=== PATIENT | female | born 1985 | race Caucasian/White ===

== ENCOUNTER 2017-11-03 18:37 | Emergency (ER) | payer OTHER ==
--- NOTE | 2017-11-03 21:12 | US ---
First trimester obstetrical ultrasound: Multiple real-time images were obtained transvaginally. Single intrauterine gestational sac is seen. Embryo is identified which has a crown-rump length of 1.1 cm correlating to an age of 7 weeks 1 day. No heart activity is seen which should be visible at this time. Incidental nabothian cysts are seen. Maternal ovaries appear unremarkable. Impression: 1. at approximately 7 weeks 1 day. Embryo shows no heart activity which should be present at this time. Findings are compatible with nonviable . Diagnostic code #5
--- NOTE | 2017-11-03 21:53 | EDM.PDOC ---
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 Her dogman/woman is Dr. Cardona, however, she states that she has not yet met Dr. Cardona, because her previous appointments have had to be moved due to Dr. Cardona having to attend medical emergencies. The patient's current appointment to meet Dr. Cardona is this 11/05/2017. The patient states that she developed some painless spotting this morning, then passed a fairly large clot, without pain, around 18:00 this evening. Since then , she has been having "light flow". She went to the walk-in clinic, but was sent here. No urinary symptoms. The patient's PCP was Bianca Pena; she does not have a replacement PCP. - Related Data Allergies Allergy/AdvReac Type Severity Reaction Status Date / Time Sulfa (Sulfonamide Allergy Nausea Verified 11/03/17 18:52 Antibiotics) Home Meds: Home Meds . 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 One right knee surgery, open.) Social & Family History - Tobacco Use Smoking Status *Q: Never Smoker Second Hand Smoke Exposure: No - Caffeine Use Caffeine Use: Reports: Coffee - Alcohol Use Alcohol Use History: Yes Alcohol Use Frequency: Socially (before ) - Recreational Drug Use Recreational Drug Use: No - Living Situation & Occupation Living situation: Reports: , with Spouse, with Family (2 stepkids) Occupation: Employed ([employer]) ED ROS GENERAL - Review of Systems Review Of Systems: ROS reveals no pertinent complaints other than HPI. ED EXAM - Physical Exam Exam: See Below Exam Limited By: No Limitations General Appearance: Alert, WD/WN, No Apparent Distress Eye Exam: Bilateral Eye: EOMI, Normal Inspection Ears: Normal External Exam, Hearing Grossly Normal Nose: Normal Inspection Throat/Mouth: Normal Inspection, Normal Lips, Normal Voice, No Airway Compromise Head: Atraumatic, Normocephalic Neck: Normal Inspection, Full Range of Motion Respiratory/Chest: No Respiratory Distress, Lungs Clear, Normal Breath Sounds, No Accessory Muscle Use Cardiovascular: Normal Peripheral Pulses, Regular Rate, Rhythm, No Edema, No Gallop, No JVD, No Murmur, No Rub GI/Abdominal Exam: Normal Bowel Sounds, Soft, Non-Tender, No Organomegaly, No Distention, No Abnormal Bruit, No Mass Back Exam: Normal Inspection, Full Range of Motion. No: CVA Tenderness (L), CVA Tenderness (R) Extremities: Normal Inspection, Normal Range of Motion, No Pedal Edema, Normal Capillary Refill Neurological: Alert, Oriented, Normal Cognition, No Motor/Sensory Deficits Psychiatric: Normal Affect Skin Exam: Warm, Dry, Intact, Normal Color, No Rash Course - Vital Signs Last Recorded V/S: Last Vital Signs Temp 37.3 C 11/03/17 18:52 Pulse 78 11/03/17 18:52 Resp 18 11/03/17 18:52 BP 133/79 11/03/17 18:52 Pulse Ox 100 11/03/17 18:52 - Orders/Labs/Meds Labs: Laboratory Tests 11/03/17 11/03/17 Range/Units 20:15 20:15 WBC 7.53 (3.98-10.04) K/mm3 RBC 4.20 (3.98-5.22) M/mm3 Hgb 12.6 (11.2-15.7) gm/L Hct 38.0 (34.1-44.9) % MCV 90.5 (79.4-94.8) fl MCH 30.0 (25.6-32.2) pg MCHC 33.2 (32.2-35.5) g/dl RDW Std Deviation 40.7 (36.4-46.3) fL Plt Count 275 (182-369) K/mm3 MPV 10.4 (9.4-12.3) fl Neutrophils % (Manual) 60 (40-60) % Band Neutrophils % 0 (0-10) % Lymphocytes % (Manual) 31 (20-40) % Atypical Lymphs % 0 % Monocytes % (Manual) 5 (2-10) % Eosinophils % (Manual) 4 (0.7-5.8) % Basophils % (Manual) 0 L (0.1-1.2) Platelet Estimate Adequate Plt Morphology Comment Normal RBC Morph Comment Normal Sodium 139 (136-145) mEq/L Potassium 3.5 (3.5-5.1) mEq/L Chloride 103 (98-107) mEq/L Carbon Dioxide 30 (21-32) mEq/L Anion Gap 9.5 (5-15) BUN 13 (7-18) mg/dL Creatinine 0.6 (0.55-1.02) mg/dL Est Cr Clr Drug Dosing 121.85 mL/min Estimated GFR (MDRD) > 60 (>60) mL/min BUN/Creatinine Ratio 21.7 H (14-18) Glucose 96 (74-106) mg/dL Calcium 9.3 (8.5-10.1) mg/dL Total Bilirubin 0.2 (0.2-1.0) mg/dL AST 23 (15-37) U/L ALT 36 (14-59) U/L Alkaline Phosphatase 41 L (46-116) U/L Total Protein 7.5 (6.4-8.2) g/dl Albumin 3.9 (3.4-5.0) g/dl Globulin 3.6 gm/dL Albumin/Globulin Ratio 1.1 (1-2) HCG, Quant 69182.0 mIU/mL - Re-Assessments/Exams Free Text/Narrative Re-Assessment/Exam: 11/03/17 21:43 Transvaginal ultrasound is read by Dr. Prajapati as: 1. at a proximally 7 weeks 1 day. Embryo shows no heart activity which should be present at this time. Findings are compatible with nonviable . 11/03/17 21:[address] Coto at 21:42. The patient has 3 choices; she can have a natural , she can receive Cytotec, or she can have a D&C. Because the patient has no pain and minimal bleeding, the D&C can be deferred until tomorrow. The above was relayed to the patient. She would like to talk to her before making a decision. 11/03/17 22:35 The patient has decided to proceed with a D&C. Case again discussed with Dr. Coto at 22:30. The patient can have a D&C with either Dr. Cardona or him. She should call either of their offices tomorrow morning. She should remain NPO after midnight. This was explained to the patient. I will discharge her home with office numbers for both Dr. Cardona and Dr. Coto. Departure - Departure Time of Disposition: 22:37 Disposition: Home, Self-Care 01 Condition: Fair Clinical Impression: Inevitable - Discharge Information *PRESCRIPTION DRUG MONITORING PROGRAM REVIEWED*: Not Applicable *COPY OF PRESCRIPTION DRUG MONITORING REPORT IN PATIENT [place]: Not Applicable Instructions: Miscarriage, [id number] Referrals: Cammy Cardona MD [Physician] - Lee Coto MD [Physician] - Forms: ED Department Discharge Additional Instructions: You were seen in the emergency room for painless vaginal bleeding while . Workup in the ER included blood work and a transvaginal ultrasound. The ultrasound found a 7 week 1 day , but with no heartbeat, indicating that the fetus has . Your case was discussed with the Water Team Leader Dr. Lee Coto. You have elected to proceed with a D&C. Do not eat or drink anything after midnight. Call the office of either Dr. Coto or Dr. Cardona first thing tomorrow morning, to arrange for an outpatient D&C. If you develop pain, or significant bleeding, please return to the ER for reevaluation.
== END 2017-11-03 22:55 | disposition home or self-care (01) ==
LOC: JD.ED 18:37
DX: O03.9 Complete or unspecified spontaneous abortion without complication (principal); Z88.2 Allergy status to sulfonamides
CPT/HCPCS: 36415; 76817; 76817-26; 80053; 84702; 85007; 85027; 99284; 99284-25

== ENCOUNTER → 2017-11-04 | Day surgery (SDC) | payer OTHER ==
[~2017-11-04] MED LIST: Dexamethasone 4 MG/ML 5 ML MDV ONE; Ibuprofen 600 MG Tab PO PRN; Ketamine 500 mg/10 ML MDV ONE; Ketorolac 30 MG/ML SDV ONE; Lactated Ringers 1,000 ML IV SCH; Lidocaine 1% 4 ML ONE; Lidocaine 1%/Sod Bicarbonate in NS 8.4% 1 ML Syringe IDERM PRN; Midazolam 1 MG/ML 2 ML SDV ONE; Ondansetron 4 MG/2 ML SDV IVPUSH PRN; Ondansetron 4 MG/2 ML SDV ONE; Propofol 200 MG/20 ML SDV ONE; Sodium Chloride 0.9% 10 ML Syringe FLUSH PRN; ceFAZolin 1 GM Vial ONE; fentaNYL 100 MCG/2 ML SDV ONE
--- NOTE | 2017-11-04 14:36 | PCM.PREANE ---
Preanesthetic Assessment - Procedure Proposed Procedure: Suction D&C - Anesthesia/Transfusion/Family Hx Anesthesia History: Prior Anesthesia Reaction Type of Anesthesia Reaction: Excessive Nausea/Vomiting Family History of Anesthesia Reaction: No Transfusion History: No Prior Transfusion(s) - Review of Systems General: No Symptoms Pulmonary: No Symptoms Cardiovascular: No Symptoms Gastrointestinal: No Symptoms Neurological: No Symptoms Other: Reports: None - Physical Assessment NPO Status Date: 11/03/17 NPO Status Time: 23:30 O2 Sat by Pulse Oximetry: 96 Respiratory Rate: 16 Vital Signs: Last Vital Signs Temp 37.1 C 11/04/17 13:40 Pulse 75 11/04/17 13:40 Resp 16 11/04/17 13:40 BP 112/82 11/04/17 13:40 Pulse Ox 96 11/04/17 13:40 Height: 1.65 m Weight: 55.338 kg ASA Class: 1 Mental Status: Alert & Oriented x3 Airway Class: Mallampati = 1 Dentition: Reports: Normal Dentition (prominent incisors ) Thyro-Mental Finger Breadths: 3 Mouth Opening Finger Breadths: 3 ROM/Head Extension: Full Lungs: Clear to Auscultation, Normal Respiratory Effort Cardiovascular: Regular Rate, Regular Rhythm - Lab Values: Laboratory Last Values Blood Type A NEGATIVE 11/03/17 20:15 Gel Antibody Screen Negative 11/03/17 20:15 - Allergies Allergies/Adverse Reactions: Allergies Allergy/AdvReac Type Severity Reaction Status Date / Time Sulfa (Sulfonamide Allergy Nausea Verified 11/03/17 18:52 Antibiotics) - Blood Blood Available: No Product(s) Available: None - Anesthesia Plan Pre-Op Medication Ordered: None - Acknowledgements Anesthesia Type Planned: MAC Pt an Appropriate Candidate for the Planned Anesthesia: Yes Alternatives and Risks of Anesthesia Discussed w Pt/Guardian: Yes Pt/Guardian Understands and Agrees with Anesthesia Plan: Yes PreAnesthesia Questionnaire HEENT History: Reports: Allergic Rhinitis, Impaired Vision 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 [No Known Home Meds] 11/03/17 [History] - CURRENT (IN HOUSE) MEDS Current Meds: Current Medications Lactated Ringer's (Ringers, Lactated) 1,000 mls @ 125 mls/hr IV ASDIRECTED BERONICA Stop: 11/04/17 23:00 Last Admin: 11/04/17 14:03 Dose: 125 mls/hr Lidocaine/Sodium Bicarbonate (Buffered Lidocaine 1% In Ns 8.4%) 0.25 ml IDERM ONETIME PRN PRN Reason: Prior to IV Start Stop: 11/04/17 18:00 Sodium Chloride (Saline Flush) 10 ml FLUSH ASDIRECTED PRN PRN Reason: Keep Vein Open Stop: 11/04/17 18:00
--- NOTE | 2017-11-04 15:57 | PCM.OPNOTE ---
- General Post-Op/Procedure Note Date of Surgery/Procedure: 11/04/17 Operative Procedure(s): Dilation and suction curettage Findings: Uterus sounded to 8 cm. Tissue present within the endometrial cavity consistent with products of conception. Cervix was essentially closed. Bimanual exam showed no evidence of abnormalities involving the adnexa. Pre Op Diagnosis: Miscarriage Post-Op Diagnosis: Same Anesthesia Technique: MAC Primary Surgeon: Lee Coto Secondary Surgeon: Jennifer Snell Anesthesia Provider: Dank Barragan Pathology: Endometrial curettings Fluid Replacement, Intraop: 700 EBL in mLs: 25 Complications: None Condition: Good Free Text/Narrative:: Surgery duration: 8 minutes The patient was taken to the operating room and placed in a supine position operating table. She received 2 g of Ancef preoperatively for infection prophylaxis and had sequential compression stockings in place for DVT prophylaxis. After adequate general LMA anesthesia patient was placed in a dorsal lithotomy position. A weighted speculum was placed in the vagina. Cervix is found to be dilated to approximately minimally. Her blood present vaginally. Uterus was sounded to approximately 8 cm. It was found to be anterior and mid position. An 7 mm suction curette was then introduced in routine fashion the endometrial cavity was evacuated. Moderate amount tissue was obtained. Findings consistent with products of conception. A medium size sharp curet was introduced and very careful fashion the endometrial cavity was curetted. It was be clear of any further tissue. The suction curet was then reintroduced and small and blood was removed. No further tissue was removed. This point the D&C was discontinued. The single-toothed tenaculum used to stabilize the anterior lip the cervix was removed. Blood was removed from the vagina with a stick sponge and the weighted speculum was removed from the vagina. The patient was awakened from LMA anesthesia. The patient was discharged from the operating room in good condition.
--- NOTE | 2017-11-04 16:06 | PCM48HPAN ---
Post Anesthesia Note - EVALUATION WITHIN 48HRS OF ANESTHETIC Vital Signs in Normal Range: Yes Patient Participated in Evaluation: Yes Respiratory Function Stable: Yes Airway Patent: Yes Cardiovascular Function Stable: Yes Hydration Status Stable: Yes Pain Control Satisfactory: Yes Nausea and Vomiting Control Satisfactory: Yes Mental Status Recovered: Yes Pulse Rate: 77 SaO2: 99 Resp Rate: 12 Temperature: 37.1 C Blood Pressure: 104/69
== END | disposition home or self-care (01) ==
LOC: JD.SDS 13:16
PROVIDERS: ATTEND Obstetrics & Gynecology
DX: O03.9 Complete or unspecified spontaneous abortion without complication (principal); Z88.2 Allergy status to sulfonamides
CPT/HCPCS: 36415; 59812; 86850; 86900; 86901; J0690; J1100; J1885; J2250; J2405; J2704; J2790; J3010; J7120; 01965; 36430; J2001

== ENCOUNTER 2019-03-01 11:06 | Inpatient (IN) | payer OTHER ==
[2019-03-01] MEDS ORDERED: Sodium Chloride 0.9% 10 ML Syringe FLUSH PRN (11:44)
[2019-03-01] MEDS ORDERED: Nalbuphine 10 MG/ML Syringe IVPUSH PRN (11:44)
[2019-03-01] MEDS ORDERED: Ondansetron 4 MG/2 ML SDV IVPUSH PRN (11:44)
[2019-03-01] MEDS ORDERED: Oxytocin/Lactated Ringers 10 UNIT/1,000 ML BAG IV SCH ×2 (11:45)
--- NOTE | 2019-03-01 14:45 | PCM.LDHP ---
L&D History of Present Illness - General Date of Service: 03/01/19 Admit Problem/Dx: Patient Status Order with Admit Dx/Problem 03/01/19 11:44 Patient Status [ADT] Routine Admission Diagnosis/Problem Admission Diagnosis/Problem - History of Present Illness Improves with: Reports: None Worsens with: Reports: None Associated Symptoms: Reports: N - Related Data Allergies/Adverse Reactions: Allergies Allergy/AdvReac Type Severity Reaction Status Date / Time Sulfa (Sulfonamide AdvReac Hives Verified 03/01/19 12:50 Antibiotics) Home Medications: Home Meds #92/Iron/FA #8/Ps-Dha [Enbrace Hr Softgel] 1 each PO DAILY 03/01/19 [ History] Past Medical History HEENT History: Reports: Allergic Rhinitis, Impaired Vision 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: , 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 Musculoskeletal History: Reports: Other (See Below) - Past Surgical History HEENT Surgical History: Reports: Oral Surgery, Tonsillectomy Musculoskeletal Surgical History: Reports: Other (See Below) Other Musculoskeletal Surgeries/Procedures:: 5 knee surgeries Social & Family History - Family History Family Medical History: Noncontributory - Tobacco Use Smoking Status *Q: Never Smoker Second Hand Smoke Exposure: No - Caffeine Use Caffeine Use: Reports: Coffee - Recreational Drug Use Recreational Drug Use: No - Living Situation & Occupation Living situation: Reports: , with Spouse, with Family (2 stepkids) Occupation: Employed ([employer]) H&P Review of Systems - Review of Systems: Review Of Systems: See Below General: Reports: No Symptoms HEENT: Reports: No Symptoms Pulmonary: Reports: No Symptoms Cardiovascular: Reports: No Symptoms Gastrointestinal: Reports: No Symptoms Genitourinary: Reports: No Symptoms Musculoskeletal: Reports: No Symptoms Skin: Reports: No Symptoms Psychiatric: Reports: No Symptoms Neurological: Reports: No Symptoms Hematologic/Lymphatic: Reports: No Symptoms Immunologic: Reports: No Symptoms L&D Exam - Exam Exam: See Below - Vital Signs Vital Signs: Last Vital Signs Temp 36.2 C 03/01/19 11:44 Pulse 82 03/01/19 11:44 Resp 15 03/01/19 11:44 BP 110/76 03/01/19 11:44 Pulse Ox Weight: 75.296 kg - OB Specific Contraction Intensity: Moderate to Strong Movement: Active Heart Tones: Present Heart Rate (FHR) Variability: Moderate (6-25 bmp) Presentation: Vertex - Holt Score Holt Score Cervix Position: Midposition Holt Score Consistency: Medium Holt Score Effacement: 51-70% Holt Score Dilation: 3-4 cm Holt Score 's Station: -2 Holt Score Total: 7 - Exam General: Alert, Oriented HEENT: PERRLA, Conjunctiva Clear, EACs Clear, EOMI, Hearing Intact, Mucosa Moist & [place], Nares Patent, Normal Nasal Septum, Posterior Pharynx Clear, TMs Clear Neck: Supple, Trachea Midline Lungs: Clear to Auscultation, Normal Respiratory Effort Cardiovascular: Regular Rate, Regular Rhythm GI/Abdominal Exam: Normal Bowel Sounds, Soft, Non-Tender, No Organomegaly, No Distention, No Abnormal Bruit, No Mass, Pelvis Stable Rectal Exam: Normal Exam, Normal Rectal Tone Genitourinary: Deferred Back Exam: Normal Inspection, Full Range of Motion Extremities: Normal Inspection, Normal Range of Motion, Non-Tender, No Pedal Edema, Normal Capillary Refill Skin: Warm, Dry, Intact Neurological: Cranial Nerves Intact, Reflexes Equal Bilateral Psychiatric: Alert, Normal Affect, Normal Mood - Patient Data Lab Results Last 24 hrs: Laboratory Results - last 24 hr 03/01/19 03/01/19 Range/Units 12:01 12:01 WBC 13.19 H (3.98-10.04) K/mm3 RBC 4.24 (3.98-5.22) M/mm3 Hgb 12.6 (11.2-15.7) gm/dl Hct 38.3 (34.1-44.9) % MCV 90.3 (79.4-94.8) fl MCH 29.7 (25.6-32.2) pg MCHC 32.9 (32.2-35.5) g/dl RDW Std Deviation 43.7 (36.4-46.3) fL Plt Count 251 (182-369) K/mm3 MPV 10.1 (9.4-12.3) fl Neut % (Auto) 79.8 H (34.0-71.1) % Lymph % (Auto) 11.4 L (19.3-51.7) % [place] % (Auto) 7.8 (4.7-12.5) % Eos % (Auto) 0.5 L (0.7-5.8) Baso % (Auto) 0.2 (0.1-1.2) % Neut # (Auto) 10.53 H (1.56-6.13) K/mm3 Lymph # (Auto) 1.50 (1.18-3.74) K/mm3 [place] # (Auto) 1.03 H (0.24-0.36) K/mm3 Eos # (Auto) 0.07 (0.04-0.36) K/mm3 Baso # (Auto) 0.02 (0.01-0.08) K/mm3 Blood Type A NEGATIVE Gel Antibody Screen Positive Result Diagrams: 03/01/19 12:01 Problem List Initiated/Reviewed/Updated: Yes Orders Last 24hrs: Active Orders 24 hr Category Date Time Status Patient Status [ADT] Routine ADT 03/01/19 11:44 Active Activity as Tolerated [RC] PFP Care 03/01/19 11:44 Active Communication Order [RC] ASDIRECTED Care 03/01/19 11:44 Active Notify Provider [RC] PFP Care 03/01/19 11:44 Active Peripheral IV Care [RC] . DIRECTED Care 03/01/19 11:44 Active Pump Management, Intrathecal [RC] ASDIRECTED Care 03/01/19 11:46 Active Urinary Catheter Assessment [RC] ASDIRECTED Care 03/01/19 11:44 Active Vital Signs [RC] PER UNIT ROUTINE Care 03/01/19 11:44 Active Regular Diet [DIET] Diet 03/01/19 Breakfast Active ANTIBODY IDENTIFICATION [BBK] Stat Lab 03/01/19 12:01 Results RAPID PLASMA REAGIN,RPR [CHEM] Routine Lab 03/01/19 12:01 Received TYPE AND SCREEN [BBK] Stat Lab 03/01/19 12:01 Results Lactated Ringers [Ringers, Lactated] 1,000 ml Med 03/01/19 11:45 Active IV ASDIRECTED Lidocaine 1% [Xylocaine 1%] Med 03/01/19 16:00 Once 50 ml INJECT ONETIME ONE Nalbuphine [Nubain] Med 03/01/19 11:44 Active 10 mg IVPUSH Q2H PRN Ondansetron [Zofran] Med 03/01/19 11:44 Active 4 mg IVPUSH Q4H PRN Oxytocin/Lactated Ringers [Pitocin in LR 10 Units/1,000 Med 03/01/19 11:45 Active ML] 10 unit in 1,000 ml IV .CONTINUOUS Oxytocin/Lactated Ringers [Pitocin in LR 10 Units/1,000 Med 03/01/19 11:45 Active ML] 10 unit in 1,000 ml IV TITRATE Sodium Chloride 0.9% [Saline Flush] Med 03/01/19 11:44 Active 10 ml FLUSH ASDIRECTED PRN Electronic Heart Tones Ext w TOCO [WOMSER] Oth 03/01/19 11:44 Ordered Routine Electronic Heart Tones Internal [WOMSER] Per Unit Oth 03/01/19 11:44 Ordered Routine Peripheral IV Insertion Adult [OM.PC] Routine Oth 03/01/19 11:44 Ordered Resuscitation Status Routine Resus Stat 03/01/19 11:44 Ordered Medication Orders Lactated Ringer's (Ringers, Lactated) 1,000 mls @ 100 mls/hr IV ASDIRECTED BERONICA Oxytocin/Lactated Ringer's (Pitocin In Lr 10 Units/1,000 Ml) 10 unit in 1,000 mls @ 12 mls/hr IV TITRATE BERONICA; Protocol Oxytocin/Lactated Ringer's (Pitocin In Lr 10 Units/1,000 Ml) 10 unit in 1,000 mls @ 100 mls/hr IV .CONTINUOUS BERONICA; Protocol Lidocaine HCl (Xylocaine 1%) 50 ml INJECT ONETIME ONE Stop: 03/01/19 16:01 Nalbuphine HCl (Nubain) 10 mg IVPUSH Q2H PRN PRN Reason: Pain Ondansetron HCl (Zofran) 4 mg IVPUSH Q4H PRN PRN Reason: Nausea/Vomiting Sodium Chloride (Saline Flush) 10 ml FLUSH ASDIRECTED PRN PRN Reason: Keep Vein Open Assessment/Plan Comment:: Term ROM with possible meconium. Mild contractions. Minimal to no cervical change so initiate pitocin.
[2019-03-01] MEDS: Lactated Ringers 1,000 ML IV SCH ×4 (14:58→21:06)
[2019-03-01] MEDS ORDERED: Lidocaine 1% 50 ML MDV INJECT ONE (16:00)
[2019-03-01] MEDS ORDERED: diphenhydrAMINE 50 MG/ML SDV IVPUSH PRN (18:26)
[2019-03-01] MEDS ORDERED: fentaNYL/Bupivacaine/NS 2 MCG-0.125% 250 ML EPIDUR PRN (18:26)
[2019-03-01] MEDS ORDERED: fentaNYL 100 MCG/2 ML SDV EPIDUR PRN (18:26)
--- NOTE | 2019-03-01 19:52 | PCM.PREANE ---
Preanesthetic Assessment - Procedure Proposed Procedure: berhane - Anesthesia/Transfusion/Family Hx Anesthesia History: Prior Anesthesia Reaction Type of Anesthesia Reaction: Excessive Nausea/Vomiting (possibly oral and iv meds) Transfusion History: No Prior Transfusion(s) - Review of Systems General: No Symptoms Pulmonary: No Symptoms Cardiovascular: No Symptoms Gastrointestinal: No Symptoms Neurological: No Symptoms Other: Reports: None - Physical Assessment Vital Signs: Last Vital Signs Temp 97.2 F 03/01/19 11:44 Pulse 152 H 03/01/19 15:00 Resp 15 03/01/19 11:44 BP 110/76 03/01/19 11:44 Pulse Ox Height: 5 ft 5 in Weight: 75.296 kg ASA Class: 2 Mental Status: Alert & Oriented x3 Airway Class: Mallampati = 1 Dentition: Reports: Normal Dentition Thyro-Mental Finger Breadths: 3 Mouth Opening Finger Breadths: 3 ROM/Head Extension: Full Lungs: Clear to Auscultation, Normal Respiratory Effort Cardiovascular: Regular Rate, Regular Rhythm - Lab Values: Laboratory Last Values WBC 13.19 K/mm3 (3.98-10.04) H 03/01/19 12:01 RBC 4.24 M/mm3 (3.98-5.22) 03/01/19 12:01 Hgb 12.6 gm/dl (11.2-15.7) 03/01/19 12:01 Hct 38.3 % (34.1-44.9) 03/01/19 12:01 MCV 90.3 fl (79.4-94.8) 03/01/19 12:01 MCH 29.7 pg (25.6-32.2) 03/01/19 12:01 MCHC 32.9 g/dl (32.2-35.5) 03/01/19 12:01 RDW Std Deviation 43.7 fL (36.4-46.3) 03/01/19 12:01 Plt Count 251 K/mm3 (182-369) 03/01/19 12:01 MPV 10.1 fl (9.4-12.3) 03/01/19 12:01 Neut % (Auto) 79.8 % (34.0-71.1) H 03/01/19 12:01 Lymph % (Auto) 11.4 % (19.3-51.7) L 03/01/19 12:01 [place] % (Auto) 7.8 % (4.7-12.5) 03/01/19 12:01 Eos % (Auto) 0.5 (0.7-5.8) L 03/01/19 12:01 Baso % (Auto) 0.2 % (0.1-1.2) 03/01/19 12:01 Neut # (Auto) 10.53 K/mm3 (1.56-6.13) H 03/01/19 12:01 Lymph # (Auto) 1.50 K/mm3 (1.18-3.74) 03/01/19 12:01 Henderson # (Auto) 1.03 K/mm3 (0.24-0.36) H 03/01/19 12:01 Eos # (Auto) 0.07 K/mm3 (0.04-0.36) 03/01/19 12:01 Baso # (Auto) 0.02 K/mm3 (0.01-0.08) 03/01/19 12:01 RPR Non-reactive (NONREACTIVE) 03/01/19 12:01 Blood Type A NEGATIVE 03/01/19 12:01 Gel Antibody Screen Positive 03/01/19 12:01 - Allergies Allergies/Adverse Reactions: Allergies Allergy/AdvReac Type Severity Reaction Status Date / Time Sulfa (Sulfonamide AdvReac Hives Verified 03/01/19 12:50 Antibiotics) - Blood Blood Available: No - Acknowledgements Anesthesia Type Planned: Epidural Pt an Appropriate Candidate for the Planned Anesthesia: Yes Alternatives and Risks of Anesthesia Discussed w Pt/Guardian: Yes Pt/Guardian Understands and Agrees with Anesthesia Plan: Yes PreAnesthesia Questionnaire HEENT History: Reports: Allergic Rhinitis, Impaired Vision Cardiovascular History: Reports: None Respiratory History: Reports: None Gastrointestinal History: Reports: GERD (with preg) 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: , Spontaneous Musculoskeletal History: Reports: Other (See Below) - Past Surgical History HEENT Surgical History: Reports: Oral Surgery, Tonsillectomy Musculoskeletal Surgical History: Reports: Other (See Below) Other Musculoskeletal Surgeries/Procedures:: 5 knee surgeries - SUBSTANCE USE Smoking Status *Q: Never Smoker Tobacco Use Within Last Twelve Months: No Second Hand Smoke Exposure: No Recreational Drug Use History: No - HOME MEDS Home Medications: Home Meds #92/Iron/FA #8/Ps-Dha [Enbrace Hr Softgel] 1 each PO DAILY 03/01/19 [ History] - CURRENT (IN HOUSE) MEDS Current Meds: Current Medications Diphenhydramine HCl (Benadryl) 25 mg IVPUSH Q6H PRN PRN Reason: pruritis Ephedrine Sulfate (Ephedrine Sulfate) 5 mg IVPUSH ASDIRECTED PRN PRN Reason: Hypotension Fentanyl (Sublimaze) 100 mcg EPIDUR Q3H PRN PRN Reason: Pain Last Admin: 03/01/19 19:40 Dose: 100 mcg Fentanyl/Bupivacaine HCl (Fentanyl/Bupivacaine/Ns 2 Mcg-0.125% 250 Ml) 0 ml EPIDUR CONTINUOUS PRN PRN Reason: Pain Last Admin: 03/01/19 19:39 Dose: 250 ml Lactated Ringer's (Ringers, Lactated) 1,000 mls @ 100 mls/hr IV ASDIRECTED BERONICA Last Admin: 03/01/19 18:14 Dose: 100 mls/hr Oxytocin/Lactated Ringer's (Pitocin In Lr 10 Units/1,000 Ml) 10 unit in 1,000 mls @ 12 mls/hr IV TITRATE BERONICA; Protocol Last Titration: 03/01/19 18:13 Dose: 0 munits/min, 0 mls/hr Oxytocin/Lactated Ringer's (Pitocin In Lr 10 Units/1,000 Ml) 10 unit in 1,000 mls @ 100 mls/hr IV .CONTINUOUS BERONICA; Protocol Nalbuphine HCl (Nubain) 10 mg IVPUSH Q2H PRN PRN Reason: Pain Ondansetron HCl (Zofran) 4 mg IVPUSH Q4H PRN PRN Reason: Nausea/Vomiting Sodium Chloride (Saline Flush) 10 ml FLUSH ASDIRECTED PRN PRN Reason: Keep Vein Open Discontinued Medications Lidocaine HCl (Xylocaine 1%) 50 ml INJECT ONETIME ONE Stop: 03/01/19 16:01
[2019-03-01] MEDS: ePHEDrine 50 MG/ML SDV IVPUSH PRN ×2 (20:04→20:47)
[2019-03-02] MEDS: Lactated Ringers 1,000 ML IV SCH ×2 (00:43→09:37)
--- NOTE | 2019-03-02 15:56 | PCM.SN ---
- Free Text/Narrative Note: Stage I - Patient presented with ROM. Progressed to complete slowly with overall reassuring heart tones. Epidural for anesthesia. Stage II- of viable male, weight 4060g, 8/8 APGARS at 1529. Head delivered in controlled manner over intact perineum. Body and shoulders atraumatically. Positive cry. Cord clamped and cut and baby to warmer. Stage III - of intact placenta. 3vc. 2nd degree laceration repaired with 3- 0 vicryl. EBL 300.
[2019-03-02] MEDS ORDERED: Witch Hazel Medicated Pads 40/Jar TOP PRN (16:52)
[2019-03-02] MEDS ORDERED: Hydrocortisone Acetate 25 MG Supp RECTAL PRN (16:52)
[2019-03-02] MEDS ORDERED: Acetaminophen 325 MG Tab PO PRN (16:52)
[2019-03-02] MEDS ORDERED: Docusate Sodium 100 MG Cap PO PRN (16:52)
[2019-03-02] MEDS ORDERED: Benzocaine/Menthol 20%-0.5% Spray 56 GM Canister TOP PRN (16:52)
[2019-03-02] MEDS ORDERED: Ibuprofen 600 MG Tab PO PRN (16:52)
[2019-03-03] MEDS ORDERED: Bupivacaine 0.25% 10 ML SDV ONE
[2019-03-03] MEDS: Polyethylene Glycol 3350 Powder 17 GM Packet PO SCH ×2 (02:11→22:15)
--- NOTE | 2019-03-04 06:52 | PCM.DCSUM1 ---
Discharge Summary - Hospital Course Free Text/Narrative:: Term SROM with subsequent Diagnosis: Stroke: No - Discharge Data Discharge Date: 03/04/19 Discharge Disposition: Home, Self-Care 01 Condition: Good - Referral to Home Health Primary Care Physician: Cammy Cardona MD - Patient Instructions Diet: Usual Diet as Tolerated Activity: No Strenuous Activities Driving: May Drive Today Notify Provider of: Fever, Increased Pain, Swelling and Redness, Drainage, Nausea and/or Vomiting - Discharge Plan *PRESCRIPTION DRUG MONITORING PROGRAM REVIEWED*: No *COPY OF PRESCRIPTION DRUG MONITORING REPORT IN PATIENT [place]: No Home Medications: Home Meds #92/Iron/FA #8/Ps-Dha [Enbrace Hr Softgel] 1 each PO DAILY 03/01/19 [ History] Referrals: Cammy Cardona MD [Primary Care Provider] - (2 weeks) - Discharge Summary/Plan Comment DC Time >30 min.: No - General Info Date of Service: 03/04/19 Functional Status: Reports: Pain Controlled - Review of Systems General: Reports: No Symptoms HEENT: Reports: No Symptoms Pulmonary: Reports: No Symptoms Cardiovascular: Reports: No Symptoms Gastrointestinal: Reports: No Symptoms Genitourinary: Reports: No Symptoms Musculoskeletal: Reports: No Symptoms Skin: Reports: No Symptoms Neurological: Reports: No Symptoms Psychiatric: Reports: No Symptoms - Patient Data Vitals - Most Recent: Last Vital Signs Temp 36.9 C 03/04/19 03:39 Pulse 74 03/04/19 03:39 Resp 16 03/04/19 03:39 BP 106/59 L 03/04/19 03:39 Pulse Ox 99 03/04/19 03:39 Weight - Most Recent: 75.296 kg I&O - Last 24 hours: Intake & Output 03/03/19 03/03/19 03/04/19 14:59 22:59 06:59 Intake Total 860 Balance 860 Med Orders - Current: Current Medications Acetaminophen (Tylenol) 650 mg PO Q4H PRN PRN Reason: mild pain or fever Benzocaine/Menthol (Dermoplast Pain Relief [place]) 0 gm TOP ASDIRECTED PRN PRN Reason: Perineal Comfort Measure Last Admin: 03/02/19 18:09 Dose: 1 applic Docusate Sodium (Colace) 100 mg PO BID PRN PRN Reason: Constipation Last Admin: 03/02/19 18:10 Dose: 100 mg Hydrocortisone Acetate (Anucort-Hc) 25 mg RECTAL BID PRN PRN Reason: Hemorrhoid pain Ibuprofen (Motrin) 600 mg PO Q6H PRN PRN Reason: Mild pain or fever Last Admin: 03/02/19 18:10 Dose: 600 mg Polyethylene Glycol (Miralax) 17 gm PO BEDTIME BERONICA Last Admin: 03/03/19 22:15 Dose: Not Given Gagan Velarde (Tucks) 1 pad TOP ASDIRECTED PRN PRN Reason: Pain Last Admin: 03/02/19 18:09 Dose: 1 applic Discontinued Medications Bupivacaine HCl (Sensorcaine-Mpf 0.25%) 10 ml .ROUTE .[facility] ONE Stop: 03/03/19 00:01 Diphenhydramine HCl (Benadryl) 25 mg IVPUSH Q6H PRN PRN Reason: pruritis Ephedrine Sulfate (Ephedrine Sulfate) 5 mg IVPUSH ASDIRECTED PRN PRN Reason: Hypotension Last Admin: 03/01/19 20:47 Dose: 5 mg Fentanyl (Sublimaze) 100 mcg EPIDUR Q3H PRN PRN Reason: Pain Last Admin: 03/01/19 19:40 Dose: 100 mcg Fentanyl/Bupivacaine HCl (Fentanyl/Bupivacaine/Ns 2 Mcg-0.125% 250 Ml) 0 ml EPIDUR CONTINUOUS PRN PRN Reason: Pain Last Admin: 03/01/19 19:39 Dose: 250 ml Lactated Ringer's (Ringers, Lactated) 1,000 mls @ 100 mls/hr IV ASDIRECTED BERONICA Last Admin: 03/02/19 09:37 Dose: 100 mls/hr Oxytocin/Lactated Ringer's (Pitocin In Lr 10 Units/1,000 Ml) 10 unit in 1,000 mls @ 12 mls/hr IV TITRATE BERONICA; Protocol Last Titration: 03/02/19 09:38 Dose: 8 munits/min, 48 mls/hr Oxytocin/Lactated Ringer's (Pitocin In Lr 10 Units/1,000 Ml) 10 unit in 1,000 mls @ 100 mls/hr IV .CONTINUOUS BERONICA; Protocol Last Admin: 03/02/19 18:08 Dose: 100 mls/hr Lidocaine HCl (Xylocaine 1%) 50 ml INJECT ONETIME ONE Stop: 03/01/19 16:01 Last Admin: 03/03/19 18:58 Dose: Not Given Nalbuphine HCl (Nubain) 10 mg IVPUSH Q2H PRN PRN Reason: Pain Ondansetron HCl (Zofran) 4 mg IVPUSH Q4H PRN PRN Reason: Nausea/Vomiting Sodium Chloride (Saline Flush) 10 ml FLUSH ASDIRECTED PRN PRN Reason: Keep Vein Open - Exam General: Reports: Alert, Oriented HEENT: Reports: Pupils Equal, Pupils Reactive, EOMI, Mucous Membr. Moist/[place] Neck: Reports: Supple Cardiovascular: Reports: Regular Rate, Regular Rhythm GI/Abdominal Exam: Normal Bowel Sounds, Soft, Non-Tender, No Organomegaly, No Distention, No Abnormal Bruit, No Mass, Pelvis Stable Rectal (Female) Exam: Normal Exam, Normal Rectal Tone Back Exam: Reports: Normal Inspection, Full Range of Motion Extremities: Normal Inspection, Normal Range of Motion, Non-Tender, No Pedal Edema, Normal Capillary Refill Skin: Reports: Warm, Dry, Intact Wound/Incisions: Reports: Healing Well Neurological: Reports: No New Focal Deficit Psy/Mental Status: Reports: Alert, Normal Affect, Normal Mood
== END 2019-03-04 11:20 | disposition home or self-care (01) | DRG 807 ==
LOC: JD.OBCHECK 11:06 → JD.OB 11:06 → JD.OBCHECK 11:44 → JD.OB 03-02 10:27 → OBSVTOIN 03-02 15:29 → JD.OB 03-02 15:30
PROVIDERS: ADMIT Obstetrics & Gynecology; ATTEND Obstetrics & Gynecology
PROC: 10E0XZZ Delivery of Products of Conception, External Approach (ICD-10-PCS; principal; 2019-03-02)
PROC: 0KQM0ZZ Repair Perineum Muscle, Open Approach (ICD-10-PCS; 2019-03-02)
PROC: 3E0R3BZ Introduction of Anesthetic Agent into Spinal Canal, Percutaneous Approach (ICD-10-PCS; 2019-03-02)
PROC: 00HU33Z Insertion of Infusion Device into Spinal Canal, Percutaneous Approach (ICD-10-PCS; 2019-03-02)
DX: O70.1 Second degree perineal laceration during delivery (principal); Z37.0 Single live birth; Z3A.39 39 weeks gestation of pregnancy
CPT/HCPCS: 01967; 36415; 51701; 51702; 59025; 59409; 85025; 85461; 86592; 86850; 86870; 86900; 86901; A9270-GY; J2590; J2790; J3010; J3490; J7120